=== PATIENT | male | born 2000 | race African-American/Black ===

== ENCOUNTER 2021-04-14 12:56 | Emergency (ER) | payer MEDICARE ==
[~2021-04-14] VITALS: Ht 162.6 cm; Wt 68.2 kg
--- NOTE | 2021-04-14 13:16 | PHYS DOC ---
Past History Past Medical History: Asthma (childhood) Smoking: Cigarettes Alcohol Use: None Drug Use: None Adult General Chief Complaint Chief Complaint: SHORTNESS OF BREATH HPI HPI Patient is a 20-year-old male presenting via EMS for shortness of breath. 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 He is accompanied here with his mother. Vitals are stable. Reports history of asthma but does not routinely require albuterol use. Mother presented later in visit, states she talked to patient prior to patient calling EMS. Mother believes this is an anxiety/panic attack as he just found out earlier in the day that he was going to be a father Review of Systems Review of Systems Fourteen body systems of review of systems have been reviewed. See HPI for pertinent positives and negative responses, other [place] all other systems are negative, non-pertinent or non-contributory Physical Exam Physical Exam Constitutional: Well developed, well nourished, no acute distress, non-toxic appearance. HENT: Normocephalic, atraumatic, bilateral external ears normal, oropharynx moist, no oral exudates, nose normal. Eyes: PERRLA, EOMI, conjunctiva normal, no discharge. Neck: Normal range of motion, no tenderness, supple, no stridor. Cardiovascular: Heart rate regular, sinus rhythm, no murmurs rubs or gallops Lungs & Thorax: Bilateral breath sounds clear to auscultation Abdomen: Bowel sounds normal, soft, no tenderness, no masses, no pulsatile masses. Nonsurgical abdomen, no peritoneal signs Skin: Warm, dry, no erythema, no rash. Back: No tenderness, no CVA tenderness. Extremities: No tenderness, no cyanosis, no clubbing, ROM intact, no edema. Neurologic: Alert and oriented X 3, grossly normal motor & sensory function, no focal deficits noted. Psychologic: Anxious affect and mood Current Patient Data Vital Signs Vital Signs Date Time Temp Pulse Resp B/P (MAP) Pulse Ox O2 Delivery O2 Flow Rate FiO2 04/14/21 14:21 98.1 72 18 128/82 (97) 97 Room Air Vital Signs Date Time Temp Pulse Resp B/P (MAP) Pulse Ox O2 Delivery O2 Flow Rate FiO2 04/14/21 14:21 98.1 72 18 128/82 (97) 97 Room Air Lab Results Current Medications Medications (Trade) Dose Ordered Sig/Josr Route PRN Reason Start Time Stop Time Status Last Admin Dose Admin Hydroxyzine HCl (Atarax) 25 mg PRN Q6HRS PRN PO ITCHING 04/14/21 14:00 04/15/21 04:44 DC EKG EKG EKG ordered and interpreted by myself [id number] as sinus rhythm at 73 bpm, unremarkable intervals, no axis deviation, no acute ischemic findings, no STEMI Radiology/Procedures Radiology/Procedures XR CHEST 1V Clinical Indication: Shortness of breath. Comparison: None. Findings: Left lateral ribs are incompletely imaged. The cardiomediastinal silhouette is normal. Lungs are clear. There is no pneumothorax. No pleural effusion is appreciated. No acute bone abnormality. IMPRESSION: No acute cardiopulmonary process. Electronically signed by: Navarro Rosenberg MD (04/14/2021 2:13 PM) [id number] Heart Score C/O Chest Pain: No HEART Score for Chest Pain: HEART Score for Chest Pain Response (Comments) Value History Slighlty/Non-Suspicious 0 ECG Normal 0 Age < 45 0 Risk Factors No Risk Factors 0 Total 0 Risk Factors: Risk Factors: DM, Current or recent (<one month) smoker, HTN, HLP, family history of CAD, obesity. Risk Scores: Risk Factors: DM, Current or recent (<one month) smoker, HTN, HLP, family history of CAD, obesity. Course & Med Decision Making Course & Med Decision Making Discussed with the patient all findings and diagnostic testing. I discussed most likely diagnosis of anxiety/panic attack. I discussed limited utility in further diagnostic work-up in ER setting and/or need for admission. Patient symptoms improved with p.o. hydroxyzine. Patient is scheduled to see his primary care physician within upcoming week which I feel is reasonable, I advised him to talk about anxiety and current events, I discussed therapy and medication could help him in the acute phase. Patient and mother amenable to plan as stated. As such, I stressed need for close outpatient follow-up to review today's ER visit. Strict return precautions were also discussed at length with good understanding by patient. Patient voiced understanding and agreement with the plan. Patient knows to come back for repeat evaluation if concerning signs or symptoms present prior to outpatient follow-up. Hemodynamically stable, ambulatory and well-appearing at time of disposition. Dragon Disclaimer Dragon Disclaimer This electronic medical record was generated, in whole or in part, using a voice recognition dictation system. Departure Departure: Impression: Primary Impression: Shortness of breath Additional Impression: Jittery feeling Disposition: 01 HOME / SELF CARE / HOMELESS Condition: IMPROVED Patient Instructions: Anxiety and Panic Attacks, Shortness of Breath Additional Instructions: You were seen in the ED for evaluation of shortness of breath and jitteriness. Your vital signs, physical examination, sugar level, EKG and chest x-ray were all nonconcerning for any emergent or surgical issues. You tolerated medication, Vistaril, given while in ER with improvement in symptoms. As disclose, you are most likely suffering from anxiety about health but as also disclosed, this might be an acute presentation of more concerning pathology. As such, it is vital with free to contact your primary care physician immediately after your discharge to review your ER visit today and needs a next steps of care. If any concerning signs or symptoms present prior to outpatient follow-up please do not hesitate to come back for repeat evaluation. It was a pleasure to take care of you and I wish you the best going forward Scripts Hydroxyzine Pamoate (VISTARIL) 25 Mg Capsule 1 CAP PO TID PRN for ANXIETY / AGITATION for 7 Days, #21 CAP 1 Refill Prov: RANDALL RODRIGUEZ DO 04/14/21 Problem Qualifiers RANDALL RODRIGUEZ DO Apr 14, 2021 13:16
--- NOTE | 2021-04-14 13:58 | EKG ---
[address] [address] Test Date: 2021-04-14 Test Time: 13:49:06 Pat Name: HANNAH CONLEY Department: Room: Gender: M Barker Operator: BELKIS : 2000 Requested By: RANDALL RODRIGUEZ Order Number: [id number] Reading MD: Measurements Intervals [place] Rate: 73 P: 43 FL: 146 QRS: 67 QRSD: 90 T: 39 QT: 372 QTc: 413 Interpretive Statements SINUS RHYTHM ATRIAL PREMATURE COMPLEX(ES) NO SPECIFIC ECG ABNORMALITIES RI6.02 No previous ECG available for comparison
[2021-04-14] MEDS ORDERED: hydrOXYzine HCL 25 MG TABLET PO PRN (14:00)
--- NOTE | 2021-04-14 14:15 | RAD ---
XR CHEST 1V Clinical Indication: Shortness of breath. Comparison: None. Findings: Left lateral ribs are incompletely imaged. The cardiomediastinal silhouette is normal. Lungs are jeancarlos r. There is no pneumothorax. No pleural effusion is appreciated. No acute bone abnormality. IMPRESSION: No acute cardiopulmonary process. Electronically signed by: Navarro Rosenberg MD (04/14/2021 2:13 PM) [id number]
[2021-04-14 14:21] VITALS: BP 128/82
[2021-04-14] MEDS ORDERED: HYDR25CA PO (14:50)
== END 2021-04-14 15:10 | disposition home or self-care (01) ==
LOC: ER 12:56
DX: R06.02 Shortness of breath (principal); F17.210 Nicotine dependence, cigarettes, uncomplicated; J45.909 Unspecified asthma, uncomplicated
CPT/HCPCS: 71045; 82947; 93005; 99283